=== PATIENT | female | born 1990 | race Caucasian/White ===

== ENCOUNTER 2020-01-30 20:09 | Emergency (ER) | payer SELFPAY ==
--- NOTE | 2020-01-30 20:19 | ED.ABDPAIN ---
HPI - Abdominal Pain General Chief Complaint: Abdominal Pain Stated Complaint: abdominal pain with bloating Time Seen by Provider: 01/30/20 20:18 History of Present Illness HPI narrative: 30-year-old woman with a history of cervical cancer status post removal of her cervix presents with increasing abdominal pain for the last 48 hours. Localizing to the left lower quadrant but radiating into all portions of her belly. It is associated with a feeling of significant increased bloating. She notes that her last bowel movement was approximately 2 days ago but she is still passing flatus. Mild nausea but no vomiting. She denies any fevers, cough, chills or chest pain. She does not have specific flank pain and does not have dysuria however urinating seems to exacerbate the pain slightly in the left lower quadrant. Regarding her cervical cancer, she states that she had her cervix removed about a year ago but did not require hysterectomy and she did not follow-up after the procedure. Related Data Allergies Allergy/AdvReac Type Severity Reaction Status Date / Time Penicillins Allergy Verified 01/30/20 20:38 Review of Systems Review of Systems Narrative: Pertinent positive and negative findings as per HPI Remainder of review of systems is otherwise unremarkable for Constitutional: Fevers, chills, weakness ENT: No sore throat, neck pain, ear pain CV: Chest pain, palpitations, dyspnea on exertion Respiratory: Cough, wheeze, dyspnea MS: Muscle weakness, numbness, joint swelling or warmth Skin: Rashes, nonhealing lesions Neuro: Syncope, dizziness, tingling Psych: Depression, anxiety, suicidal ideation Endocrine: Fatigue, recent changes to weight Heme: Easy bruising or bleeding Patient History Medical History Cervical cancer (Acute) Exam Narrative Exam Narrative: General: Healthy appearing, mild distress secondary to abdominal pain. Able to give a complete and coherent history. Well-nourished well-developed HEENT: Moist mucous membranes, normal sclera with reactive pupils, Neck: No JVD, supple Respiratory: Lungs are clear to auscultation, no wheezing no rales no rhonchi. Full and symmetrical air movement Cardiac: Regular rate and rhythm no murmurs no bruits Abdomen: Soft diffusely tender with increased tender in the left lower quadrant with developing rebound but no significant guarding. Hypoactive bowel tones. No flank pain Skin: Warm and dry, no rashes Neurologic: Grossly neurologically intact with no obvious asymmetries or abnormalities Extremities: No trauma, well perfused Psych: Cooperative, appropriate insight and affect Initial Vital Signs Initial Vital Signs: Vital Signs Temperature 98.5 F 01/30/20 20:27 Pulse Rate 75 01/30/20 20:27 Respiratory Rate 16 01/30/20 20:27 Blood Pressure 132/67 01/30/20 20:27 Pulse Oximetry 100 01/30/20 20:27 Course Orders Ordered: ED Orders 01/30/20 20:25 Test Urine Stat Urinalysis and Microscopic Stat 01/30/20 20:35 EKG-12 Lead Stat 01/30/20 20:42 Complete Blood Count AUTO DIFF Stat Comprehensive Metabolic Panel Stat Lipase Stat Partial Thromboplastin Time Stat Prothrombin Time INR Stat 01/30/20 21:21 CT abdomen pelvis w con Stat Discontinued Medications Hydromorphone HCl (Dilaudid) 0.5 mg IV NOW ONE Stop: 01/30/20 21:21 Last Admin: 01/30/20 21:51 Dose: 0.5 mg Documented by: STEPHY Sodium Chloride (Normal Saline 0.9%) 1,000 mls @ 1,000 mls/hr IV BOLUS ONE Stop: 01/30/20 22:19 Last Admin: 01/30/20 21:52 Dose: 1,000 mls/hr Documented by: STEPHY Ondansetron HCl (Zofran) 4 mg IV NOW ONE Stop: 01/30/20 21:21 Last Admin: 01/30/20 21:52 Dose: 4 mg Documented by: STEPHY Vital Signs Vital signs: Vital Signs - 8 hr 01/30/20 20:27 01/30/20 22:03 Temperature 98.5 F Pulse Rate 75 71 Respiratory Rate 16 18 Blood Pressure 132/67 Blood Pressure [Right Arm] 112/57 L Pulse Oximetry 100 97 MDM - Abdominal Pain Medical Records Attestation: I reviewed the patient's medical records. Lab Data Attestation: I reviewed the patient's lab results. Lab results narrative: Moderate bacteria however moderate amount of squamous cells. I believe that this is likely contaminant and will not treat for UTI until cultures return indicating appropriate antibiotic course Result diagrams: 01/30/20 20:42 01/30/20 20:42 Labs: Lab Results 06/01/30/20 01/30/20 Range/Units 20:25 20:25 20:42 WBC 11.3 H (4.5-11.0) X10^3/uL RBC 3.94 L (4.0-5.2) X10^6/uL Hgb 12.2 (12.0-16.0) g/dL Hct 36.1 (36-46) % MCV 91.7 (80-100) fL MCH 31.1 (26-34) PG MCHC 33.9 (30-36) % RDW 13.4 (11.6-14.8) % Plt Count 304 (150-400) X10^3/uL Neut % (Auto) 55.1 (50-75) % Lymph % (Auto) 32.9 (25-40) % [place] % (Auto) 6.6 (3-14) % Eos % (Auto) 4.7 H (2-4) % Baso % (Auto) 0.7 (0-2) % Neut # (Auto) 6200 (4239-2635) /uL Lymph # (Auto) 3700 (3756-4873) /uL [place] # (Auto) 700 (0-900) /uL Eos # (Auto) 500 H (0-450) /uL Baso # (Auto) 100 (0-100) /uL PT (10.1-12.7) SECONDS INR (0.9-1.3) APTT (26.4-36.2) SECONDS Sodium (137-145) mmol/L Potassium (3.4-5.1) mmol/L Chloride (98-107) mmol/L Carbon Dioxide (22-32) mmol/L BUN (7-17) mg/dL Creatinine (0.52-1.04) mg/dL Estimated GFR (>60) mL/min BUN/Creatinine Ratio (6-22) Glucose (70-100) mg/dL Calcium (8.4-10.2) mg/dL Total Bilirubin (0.2-1.3) mg/dL AST (14-36) IU/L ALT (<35) IU/L Alkaline Phosphatase (38-126) U/L Total Protein (6.3-8.2) g/dL Albumin (3.5-5.0) g/dL Globulin (1.7-4.1) g/dL Albumin/Globulin Ratio (1.0-2.8) Lipase (23-300) U/L Urine Color Yellow Urine Appearance Clear Urine pH 5.5 (4.5-8.0) Ur Specific Alligator 1.025 (1.000-1.035) Urine Protein Negative (Negative) Urine Glucose (UA) Negative (Negative) g/dL Urine Ketones Negative (NEGATIVE) Urine Occult Blood Negative (Negative) Urine Nitrate Negative (Negative) Urine Bilirubin Negative (NEGATIVE) Urine Urobilinogen 0.2 (0.2) E.U./dL Ur Leukocyte Esterase Negative (NEGATIVE) Urine RBC 0-1/hpf (0-5/HPF) Urine WBC 1-5/hpf (0-5/HPF) Ur Squamous Epith Cells 5-10 /hpf H (0-5/HPF) Urine Bacteria Moderate (10-30) H (None) Ur Culture Indicated? Cult not indicated Urine Test Negative (Negative) 01/30/20 01/30/20 Range/Units 20:42 20:42 WBC (4.5-11.0) X10^3/uL RBC (4.0-5.2) X10^6/uL Hgb (12.0-16.0) g/dL Hct (36-46) % MCV (80-100) fL MCH (26-34) PG MCHC (30-36) % RDW (11.6-14.8) % Plt Count (150-400) X10^3/uL Neut % (Auto) (50-75) % Lymph % (Auto) (25-40) % [place] % (Auto) (3-14) % Eos % (Auto) (2-4) % Baso % (Auto) (0-2) % Neut # (Auto) (7015-9792) /uL Lymph # (Auto) (7684-7168) /uL [place] # (Auto) (0-900) /uL Eos # (Auto) (0-450) /uL Baso # (Auto) (0-100) /uL PT 11.6 (10.1-12.7) SECONDS INR 1.0 (0.9-1.3) APTT 35 (26.4-36.2) SECONDS Sodium 138 (137-145) mmol/L Potassium 4.1 (3.4-5.1) mmol/L Chloride 106 (98-107) mmol/L Carbon Dioxide 26 (22-32) mmol/L BUN 9 (7-17) mg/dL Creatinine 0.76 (0.52-1.04) mg/dL Estimated GFR > 60.0 (>60) mL/min BUN/Creatinine Ratio 11.8 (6-22) Glucose 75 (70-100) mg/dL Calcium 9.1 (8.4-10.2) mg/dL Total Bilirubin 0.3 (0.2-1.3) mg/dL AST 23 (14-36) IU/L ALT 14 (<35) IU/L Alkaline Phosphatase 73 (38-126) U/L Total Protein 7.6 (6.3-8.2) g/dL Albumin 4.3 (3.5-5.0) g/dL Globulin 3.3 (1.7-4.1) g/dL Albumin/Globulin Ratio 1.3 (1.0-2.8) Lipase 73 (23-300) U/L Urine Color Urine Appearance Urine pH (4.5-8.0) Ur Specific Alligator (1.000-1.035) Urine Protein (Negative) Urine Glucose (UA) (Negative) g/dL Urine Ketones (NEGATIVE) Urine Occult Blood (Negative) Urine Nitrate (Negative) Urine Bilirubin (NEGATIVE) Urine Urobilinogen (0.2) E.U./dL Ur Leukocyte Esterase (NEGATIVE) Urine RBC (0-5/HPF) Urine WBC (0-5/HPF) Ur Squamous Epith Cells (0-5/HPF) Urine Bacteria (None) Ur Culture Indicated? Urine Test (Negative) Imaging Data CT scan - abdomen/pelvis: Radiologist's Impression: IMPRESSION: 1. No acute intra-abdominal abnormality to correlate with patient's left lower quadrant pain. 2. Scattered colonic diverticula without acute diverticulitis. 3. Small hypodense lesion in the right hepatic lobe corresponding to a previous region of hypervascular enhancement. Findings likely represent a small hemangioma but further nonemergent evaluation may be obtained with a liver protocol MRI if clinically indicated. 4. Bilateral nephrolithiasis without evidence of obstructive uropathy. Dictated by: Alexis Monet M.D. on 01/30/2020 at 21:53 MDM Narrative Medical decision making narrative: 30-year-old woman who presents with increasing left lower abdominal pain. Labs are reassuring as is CT scan. Quite a bit of stool loading on CT scan. At this point will recommend that patient be discharged and try bottle of magnesium citrate at home and seeing if cleaning out her bowels alleviates her pain. At this point there is no evidence of sepsis, diverticulitis, abscess, recurrent cervical cancer, pyelonephritis, obstructing ureteral stone, ovarian cyst or other life-threatening abnormalities to explain her pain. She is safe for home discharge Discharge Plan Departure Patient Disposition: Home Clinical Impression: Abdominal pain Qualifiers: Abdominal location: left lower quadrant Qualified Code(s): R10.32 - Left lower quadrant pain Instructions: DI for Abdominal Pain-Adult, DI for Constipation Activity Restrictions/Additional Instructions: Thank you for coming in today Your lab work and CT scan were actually very reassuring. There is no obvious recurrence of your colon cancer, no infections in your abdomen including diverticulitis or appendicitis and no reason for hospital admission today. I suspect that much of your pain is due to significant constipation. I am sending you home with a bottle of magnesium citrate to help you clean out your bowels and see if this alleviates the pain. If you find that you are getting worse, develop fevers or have new or different symptoms, please feel free to return to the emergency department for further evaluation. Referrals: Chris Daniels MD [Primary Care Provider] -
[2020-01-30 20:27] VITALS: BP 132/67; PULSE 75; RESP 16; TEMP 36.9; O2SAT 100; BMI 32.5
[2020-01-30 20:36] LABS: Appearance Urine UA CLEAR; Bilirubin Urine UA NEGATIVE (NEGATIVE); Color Urine UA YELLOW; Glucose Urine UA NEGATIVE (Negative); Ketones Urine UA NEGATIVE (NEGATIVE); Leukocyte Esterase Urine UA NEGATIVE (NEGATIVE); Nitrite Urine UA NEGATIVE (Negative); Occult Blood Urine UA NEGATIVE (Negative); Protein Urine UA NEGATIVE (Negative); Specific Gravity Urine UA 1.025 (1.000-1.035); Urobilinogen Urine UA 0.2 E.U./dL (0.2)
[2020-01-30 20:38] LABS: Pregnancy Test Urine Negative (Negative); pH Urine UA 5.5 (4.5-8.0)
[2020-01-30 20:49] LABS: RBC Urine 0-1/HPF (0-5/HPF)
[2020-01-30 20:50] LABS: Bacteria Urine Moderate (10-30); Culture Indicated Urine Cult Not Indicated; Squamous Epithelial Cell Urine 5-10 /HPF (0-5/HPF); WBC Urine 1-5/HPF (0-5/HPF)
[2020-01-30 20:56] LABS: Add Manual Diff / Slide Review NO; Basophils Absolute Auto 100 /uL (0-100); Basophils Percent Auto 0.7 % (0-2); Eosinophils Absolute Auto 500 /uL (0-450); Eosinophils Percent Auto 4.7 % (2-4); Hematocrit 36.1 % (36-46); Hemoglobin 12.2 g/dL (12.0-16.0); Lymphocytes Absolute Auto 3700 /uL (1100-4500); Lymphocytes Percent Auto 32.9 % (25-40); Mean Corpuscular HGB Conc 33.9 % (30-36); Mean Corpuscular Hemoglobin 31.1 PG (26-34); Mean Corpuscular Volume 91.7 fL (80-100); Monocytes Absolute Auto 700 /uL (0-900); Monocytes Percent Auto 6.6 % (3-14); Neutrophils Absolute Auto 6200 /uL (1500-7000); Neutrophils Percent Auto 55.1 % (50-75); Platelet Count 304 X10^3/uL (150-400); Red Blood Cell Count 3.94 X10^6/uL (4.0-5.2); Red Cell Distribution Width 13.4 % (11.6-14.8); White Blood Cell Count 11.3 X10^3/uL (4.5-11.0)
[2020-01-30 21:01] LABS: Prothrombin Time 11.6 SECONDS (10.1-12.7)
[2020-01-30 21:04] LABS: PTT Partial Thromboplastin Tim 35 SECONDS (26.4-36.2)
[2020-01-30 21:05] LABS: Alanine Aminotransferase 14 IU/L (<35); Albumin 4.3 g/dL (3.5-5.0); Albumin Globulin Ratio 1.3 (1.0-2.8); Alkaline Phosphatase 73 U/L (38-126); Aspartate Aminotransferase 23 IU/L (14-36); BUN Creatinine Ratio 11.8 (6-22); Bilirubin Total 0.3 mg/dL (0.2-1.3); Blood Urea Nitrogen 9 mg/dL (7-17); Calcium 9.1 mg/dL (8.4-10.2); Carbon Dioxide 26 mmol/L (22-32); Chloride 106 mmol/L (98-107); Estimated Glomerular Filt Rate > 60.0 mL/min (>60); Globulin 3.3 g/dL (1.7-4.1); Glucose 75 mg/dL (70-100); HEMOLYSIS < 15 (0-50); Lipase 73 U/L (23-300); Potassium 4.1 mmol/L (3.4-5.1); Sodium 138 mmol/L (137-145); Total Protein 7.6 g/dL (6.3-8.2)
--- NOTE | 2020-01-30 21:21 | DI.CT.S_ITS ---
PROCEDURE: CT ABDOMEN PELVIS W CON INDICATIONS: LLQ pain, history of cervical cancer TECHNIQUE: After the administration of intravenous contrast, 5 mm thick sections acquired from the diaphragm to the symphysis. 5 mm coronal and sagittal reformats were acquired. For radiation dose reduction, the following was used: automated exposure control, adjustment of mA and/or kV according to patient size. COMPARISON: [facility], CT, CT ABDOMEN PELVIS WITH CONTRAST, 11/04/2019, 9:59. FINDINGS: Image quality: Diagnostic. ABDOMEN: Lung bases: Lung bases are clear. Heart size is normal. Solid organs: Within segment 5 of the right hepatic lobe, there is a small oval hypodensity measuring approximately 0.6 cm on series 2 image 26. This demonstrated hypervascular enhancement on the prior study the finding likely represents a small hemangioma.. The gallbladder appears within normal limits without calcified gallstones. Biliary system is non-dilated. Pancreas enhances normally. No peripancreatic fat stranding or fluid collections. No pancreatic duct dilatation. The spleen is normal in size. No adrenal nodules. Kidneys demonstrate no hydronephrosis. There is a punctate nonobstructing stone within the inferior pole of the left kidney and 2 punctate nonobstructing stones in the inferior right kidney. No perinephric stranding. Peritoneum and bowel: Bowel loops demonstrate normal wall thickness and caliber. The appendix is normal in appearance. There are a few colonic diverticula without acute diverticulitis. No free fluid or air. Nodes and vessels: No retroperitoneal or mesenteric adenopathy by size criteria. Aorta and inferior vena cava are normal in size. Miscellaneous: No ventral hernias. PELVIS: Genitourinary: Bladder wall thickness is normal. An IUD appears in appropriate position within the uterus. Miscellaneous: No inguinal hernias or adenopathy. Bones: No suspicious bony lesions. No vertebral body compression fractures. IMPRESSION: 1. No acute intra-abdominal abnormality to correlate with patient's left lower quadrant pain. 2. Scattered colonic diverticula without acute diverticulitis. 3. Small hypodense lesion in the right hepatic lobe corresponding to a previous region of hypervascular enhancement. Findings likely represent a small hemangioma but further nonemergent evaluation may be obtained with a liver protocol MRI if clinically indicated. 4. Bilateral nephrolithiasis without evidence of obstructive uropathy. Dictated by: Alexis Monet M.D. on 01/30/2020 at 21:53 Approved by: Alexis Monet M.D. on 01/30/2020 at 21:59
[2020-01-30] MEDS: HYDROMORPHONE 0.5 MG INJ IV (21:51)
[2020-01-30] MEDS: SODIUM CHLORIDE 0.9% 1,000 ML 1000 ML IV (21:52)
[2020-01-30] MEDS: ONDANSETRON 4 MG/2 ML INJ IV (21:52)
[2020-01-30 22:03] VITALS: BP 112/57; PULSE 71; RESP 18; O2SAT 97
[2020-01-30] MEDS: MAGNESIUM CITRATE 300 ML SOLUTION PO (22:58)
[2020-01-30 23:03] VITALS: BP 117/68; PULSE 61; RESP 16; O2SAT 97
== END 2020-01-30 23:04 | disposition home or self-care (01) ==
PROVIDERS: Emergency Provider Emergency Medicine
DX: R10.32 Left lower quadrant pain (principal); R11.0 Nausea; R14.0 Abdominal distension (gaseous)
CPT/HCPCS: 36415; 74177; 80053; 81001; 81025; 83690; 85025; 85610; 85730; 93005; 96361; 96374; 96375; 99284; J1170; J2405; Q9967